=== PATIENT | female | born 1955 | race Caucasian/White ===

== ENCOUNTER 2019-07-13 09:01 | Outpatient (CLI) | payer OTHER, SELFPAY ==
--- NOTE | ~2019-07-13 | XR_ITS ---
EXAMINATION: CT abdomen pelvis wo con, XR abdomen/kub 1V DATE: 07/13/2019 09:31 INDICATION: Renal stone TECHNIQUE: 1. Computed tomography (CT) of the abdomen and pelvis was performed without intravenous contrast. Aut omated exposure control and iterative reconstruction technique were employed. The dose-length product was 212.50 mGy-cm. 2. Supine AP view of the abdomen and pelvis was obtained on 2 overlapping radiographs. COMPARISON: CT dated 06/04/2018 and MRI dated 04/16/16 FINDINGS: CT: Calcified left lower lobe nodule consistent with old granulomatous disease. Heart size is normal. No pericardial or pleural effusion. 1.2 cm cyst in the left hepatic lobe. Calcified gallstones in the de pendent neck of the normal gallbladder. Spleen, pancreas and bilateral adrenal glands are normal. [place] els including the appendix are normal. Bladder, retroverted uterus and bilateral adnexa are normal. 8 mm proteinaceous/hemorrhagic cyst at the upper pole of the right kidney. Postoperative change of catie or partial right nephrectomy with cortical scarring and surgical clip at the lower pole of the right kidney. 4 < 2 mm nonobstructing stones in the right kidney and 4 nonobstructing stones in the left ki dney the largest measuring 3 mm. No hydronephrosis. No stones seen along the ureters. No free intrape ritoneal gas or fluid. No pathologically enlarged abdominal or pelvic lymphadenopathy. KUB: The largest 3 mm stones can be seen at the upper and lower poles of the left kidney on the plain radi ograph. The proximal 3 mm density seen at the lateral right kidney on the plain radiograph represents either a surgical clip or dystrophic calcification related to the prior nephrectomy. Multiple phlebo liths in the pelvis. Multiple heterotopic ossicles at the bilateral buttocks likely related to subcut aneous injections. The calcified gallstones are readily visible in the right upper quadrant. IMPRESSION: 1. Small bilateral nonobstructing renal stones and stable appearing changes of prior right partial ne phrectomy. 2. Cholelithiasis. Reviewed, dictated and finalized at location A. HAUL OPERATOR IMPRESSION: 1. Small bilateral nonobstructing renal stones and stable appearing changes of prior right partial nephrectomy. 2. Cholelithiasis.
== END 2019-07-13 09:02 | disposition home or self-care (01) ==
PROVIDERS: PCP Family Medicine; Visit Provider Urology
DX: N20.0 Calculus of kidney (principal); K80.20 Calculus of gallbladder without cholecystitis without obstruction
CPT/HCPCS: 74018; 74176

== ENCOUNTER → 2019-07-16 11:41 | Outpatient (CLI) | payer OTHER, SELFPAY ==
--- NOTE | ~2019-07-16 | XR_ITS ---
EXAMINATION: XR chest 2V EXAM DATE: 07/16/2019 11:52 INDICATION: Cough. Renal mass. TECHNIQUE: Frontal and lateral projections of the chest obtained and reviewed. There is no prior nick dy for comparison. FINDINGS: The lungs are clear. There are no pleural effusions. The cardiomediastinal silhouette is within normal limits. There is no pneumothorax suspected. The bones and soft tissues are unremarkab le. IMPRESSION: No acute cardiopulmonary findings. Reviewed, dictated and finalized at location B. PRESS OPERATOR
== END ==
PROVIDERS: PCP Family Medicine; Visit Provider Urology
DX: N28.89 Other specified disorders of kidney and ureter (principal)
CPT/HCPCS: 71046

== ENCOUNTER 2020-09-25 08:55 | Outpatient (CLI) | payer OTHER, SELFPAY ==
--- NOTE | ~2020-09-25 | DEXA_ITS ---
Bone Density Report Name: Alison Carver Age: 64 Sex: Female Ethnicity: White Date of : 1955 Indication: monitoring treatment; parental hip fracture; height loss; history of glucocorticoids; prior fracture; cancer; Referring Provider: RAJIV PARKER Study: Bone densitometry was performed. Exam Date: September 25, 2020 Accession number: [id number] Bone Density: Region BMD T-score Z-score Classification AP Spine (L1, L4) 0.979 -0.5 1.1 Normal Femoral Neck (Left) 0.596 -2.3 -0.9 Osteopenia Total Hip (Left) 0.839 -0.8 0.3 Normal World Health Organization criteria for BMD impression classify patients as: Normal (T-score at or above -1.0), Osteopenia (T-score between -1.0 and -2.5), or Osteoporosis (T-score at or below -2.5). 10-year Fracture Risk: FRAX not reported because: Prior hip or vertebral fracture Treated for osteoporosis Previous Exams: Region Exam Age BMD T-score BMD Change BMD Change Date g/cm2 vs Baseline vs Previous AP Spine(L1, L4) 09/25/2020 64 0.979 -0.5 -0.058(-5.6%)* 0.019(2.0%) 09/08/2018 62 0.960 -0.7 -0.077(-7.4%)* 0.002(0.2%) 07/09/2016 60 0.958 -0.7 -0.079(-7.6%)* -0.079(-7.6%)* 06/28/2014 58 1.037 0.0 Total Hip(Left) 09/25/2020 64 0.839 -0.8 -0.075(-8.2%)* -0.109(-11.5%) 09/08/2018 62 0.948 0.0 0.034(3.7%)* 0.084(9.7%)* 07/09/2016 60 0.864 -0.6 -0.050(-5.4%)* -0.050(-5.4%)* 06/28/2014 58 0.914 -0.2 *Denotes significance at 95% confidence level, LSC for AP Spine = 0.022 g/cm2, LSC for Total Hip = 0.027 g/cm2 Clinical Information Provided by Patient: Have had a previous hip or vertebral fracture Has had a low trauma fracture Parent has had a hip fracture Has taken Glucocorticoids Is being treated for osteoporosis Has used the following medications: Fosamax (i.e. alendronate) Has the following medical conditions: Cancer Patient maximum height was 63 Menopause Age: 57 Drinks caffeinated beverages Onset of menses at age 14 Number of children 2 Impression: The patient has low bone mass, based on the Left Femoral Neck T-score. The patient has risk factors, including: parental hip fracture, previous fracture, history of glucocorticoid therapy. The BMD for the Total Hip(Left) decreased, changing by -11.5% since the last DXA exam. Discussion: SIGNIFICANT BONE LOSS OBSERVED. Adherence to therapy (including calcium and vitamin D intake) should be assessed. If compliance is not a factor, review management and exclusion of secondary causes of bone loss. It is im
== END 2020-09-25 08:56 | disposition home or self-care (01) ==
LOC: ANHIMG 08:57
PROVIDERS: PCP Family Medicine; Visit Provider Obstetrics & Gynecology
DX: M81.0 Age-related osteoporosis without current pathological fracture (principal); M85.88 Other specified disorders of bone density and structure, other site
CPT/HCPCS: 77080

== ENCOUNTER → 2020-10-16 15:03 | Outpatient (CLI) | payer OTHER, SELFPAY ==
--- NOTE | ~2020-10-16 | XR_ITS ---
XR chest 2V DATE: 10/16/2020 15:49 INDICATION: Left renal neoplasm TECHNIQUE: PA and lateral views COMPARISON: 07/16/2019 2 view chest FINDINGS: Normal heart size. No hilar or mediastinal enlargement. No pulmonary infiltrate or consolid ation, pleural effusion or pulmonary vascular congestion or pneumothorax. Degenerative spurring of the thoracic spine. There is mild loss of height and anterior wedging of doug roximately T8. Diffuse osteopenia. IMPRESSION: No active cardiopulmonary disease Reviewed, dictated and finalized at location A.
--- NOTE | ~2020-10-16 | CT_ITS ---
EXAMINATION: CT abdomen pelvis wo/w con DATE: 10/16/2020 15:48 INDICATION: Neoplasm of uncertain behavior of left kidney. History of cryoablation. History of renal cell cancer. TECHNIQUE: Computed tomography (CT) of the abdomen and pelvis was performed without and subsequently with 100 cc Omnipaque 350 intravenous contrast. Automated exposure control and iterative reconstructi on technique were employed. Exam dose: 1132.65 mGy-cm total exam DLP. COMPARISON: 07/23/[address] abdomen pelvis 06/04/2018 CT abdomen and pelvis with IV contrast material FINDINGS: Calcified left lower lobe pulmonary granuloma. The lung bases are clear of infiltrate or co nsolidation. Normal heart size. No pericardial or pleural effusion. 11 mm lateral segment left hepatic probable cyst. Multiple gallstones. No gallbladder wall thickening or pericholecystic fluid or fat stranding. Normal caliber of the bile ducts and pancreatic duct. No pancreatic mass lesion or calcification. Normal sp lenic size. Normal morphology of the adrenal glands. Status post partial right nephrectomy, stable in appearance since 06/04/2018. Several punctate nonobstructing right renal calculi are noted. Approximately 1.3 cm exophytic posterior upper pole right renal cyst. Probable 5 mm mid left renal cyst. 3.8 x 5.4 x 6.8 mm upper pole left renal calculus. Pinpoint nonobstructing upper pole left renal calculus. Several additional subtle punctate nonobstruc ting left renal calculi are suggested. 4.5 x 5.5 mm left ureterovesical junction calculus. The urinary bladder is otherwise unremarkable. Retroflexed uterus. Normal appendix. No bowel obstruction, bowel wall thickening, pneumatosis or intraperitoneal free air . Small fat-containing umbilical hernia. Hardware proximal right femur. No suspicious osteolytic or osteoblastic lesions are noted. Osteopenia. Degenerative spurring in the lower thoracic spine. There is chronic severe degenerative disc disease and grade 1 anterolisthesis at L2-3. There is grade 1 anterolisthesis at L4-5. IMPRESSION: Status post right partial nephrectomy Bilateral renal cysts Bilateral nephrolithiasis Left ureterovesical junction 4.5 x 5.5 mm calculus Left hepatic 11 mm cyst Cholelithiasis Reviewed, dictated and finalized at Location A. Reviewed, dictated and finalized at location A.
[2020-10-16 15:26] LABS: Estimated Glomerular Filt Rate > 60
== END ==
PROVIDERS: PCP Family Medicine; Visit Provider Urology
DX: D41.02 Neoplasm of uncertain behavior of left kidney (principal); K80.20 Calculus of gallbladder without cholecystitis without obstruction; K76.89 Other specified diseases of liver; N20.0 Calculus of kidney; N28.1 Cyst of kidney, acquired
CPT/HCPCS: 71046; 74178; Q9967

== ENCOUNTER 2020-10-30 14:16 | Outpatient (CLI) | payer OTHER, SELFPAY ==
[2020-10-30 14:45] LABS: Anion Gap 5 mmol/L (8-16); Blood Urea Nitrogen 10 mg/dL (7-17); Calcium 9.7 mg/dL (8.4-10.2); Carbon Dioxide 32 mmol/L (22-30); Chloride 102 mmol/L (98-107); Estimated Glomerular Filt Rate > 60; Glucose 110 mg/dL (65-105); Potassium 4.1 mmol/L (3.4-5.0); Sodium 139 mmol/L (137-145)
== END 2020-10-30 14:17 | disposition home or self-care (01) ==
LOC: ANHSURGERY 14:17
PROVIDERS: Anesthesiology; PCP Family Medicine; Visit Provider Urology
DX: Z01.818 Encounter for other preprocedural examination (principal); E11.9 Type 2 diabetes mellitus without complications
CPT/HCPCS: 36415; 80048

== ENCOUNTER → 2020-11-02 02:14 | Outpatient (CLI) | payer OTHER, SELFPAY ==
[2020-11-02 17:04] LABS: SARS-CoV-2 RNA PCR Negative
== END ==
PROVIDERS: PCP Family Medicine; Visit Provider Urology
DX: Z01.812 Encounter for preprocedural laboratory examination (principal); Z20.822 Contact with and (suspected) exposure to COVID-19
CPT/HCPCS: C9803; U0003; U0005

== ENCOUNTER 2020-11-05 01:13 | Day surgery (SDC) | payer OTHER, SELFPAY ==
[2020-10-26 14:43] VITALS: BMI 27.3
--- NOTE | 2020-10-27 07:41 | PM.HPGS ---
History of Present Illness History of Present Illness Consent: Risks, benefits, and alternatives have been discussed and questions answered. Patient agrees to proceed with procedure. Chief complaint: left ureteral stone Narrative: Alison Carver is a 65 year old female who is known to me with a history of neoplasm or left kidney status post percutaneous cryoablation in October 2015. She also has a history of urolithiasis. She recently presented with an atypical flank pain. CT scan of the abdomen and pelvis reveals a 5-6 mm left distal ureteral calculus. She has had little pain but, after failure to pass for several weeks, presents for left ureteroscopy with stone extraction. Review of Systems Cardiovascular: Cardiovascular: Denies chest pain, Denies lightheadedness, Denies palpitations and Denies dyspnea Respiratory: Respiratory: Denies dyspnea Gastrointestinal: Gastrointestinal: Denies diarrhea, Denies nausea and Denies vomiting Genitourinary: Genitourinary: Denies hematuria and Denies dysuria Endocrine: Endocrine: Denies palpitations PMFSH Past Medical History Medical History Glaucoma High cholesterol History of vaginal delivery x 2 Kidney tumor Psoriatic arthritis Recent surgical procedure on lower extremity Type 2 diabetes mellitus without complications Surgical History Surgical History H/O lithotripsy History of arthroscopy Family History Family History Father Hypertension Family history of diabetes mellitus in first degree relative Family history of irritable bowel syndrome Patient's father is Mother Hypertension Family history of elevated blood lipids, Onset Age: 76 Family history of irritable bowel syndrome Patient's mother is Grandparent Cerebrovascular accident Carcinoma of colon Other Diabetes mellitus Family history of arthritis Social History Social History Smoking status: Never smoker Second hand tobacco smoke exposure: No Alcohol intake: never Substance use: never Substance use type: does not use Gender identity (if verbalized by the patient): Female Spiritual care concerns: No Meds Home Medications and Allergies Home Medications Medication Instructions Recorded Confirmed Type cetirizine 10 mg tablet 10 mg PO DAILY 07/30/19 10/26/20 History diclofenac sodium 1 % topical gel 2 gm TOPICAL QID 07/30/19 10/26/20 History fluticasone propionate 50 2 spray NASAL DAILY 07/30/19 10/26/20 History mcg/actuation nasal spray,suspension lancets 33 gauge #100 each 07/30/19 08/27/20 History leflunomide 10 mg tablet 10 mg PO DAILY 07/30/19 10/26/20 History lisinopril 2.5 mg tablet 2.5 mg PO DAILY 07/30/19 10/26/20 History multivitamin 1 tablet PO DAILY 07/30/19 10/26/20 History metformin 500 mg tablet,extended 1,000 mg PO DAILY #180 tablet 05/22/20 10/26/20 Rx release 24 hr lancets #100 ea 08/05/20 08/27/20 Rx blood sugar diagnostic See Rx Instructions .ROUTE 10/05/20 10/26/20 Rx .COMPLEX #100 ea acetaminophen [Tylenol Arthritis 650 mg PO Q8H PRN 10/26/20 10/26/20 History Pain] atorvastatin 10 mg PO DAILY 10/26/20 10/26/20 History calcium carbonate-vitamin D3 1 cap PO DAILY 10/26/20 10/26/20 History [Calcium With Vitamin D3] cholecalciferol (vitamin D3) 125 mcg PO DAILY 10/26/20 10/26/20 History [Vitamin D3] sitagliptin [Januvia] 100 mg PO DAILY 10/26/20 10/26/20 History vit C-vit M-kdcnsz-jxebkunf 1 cap PO DAILY 10/26/20 10/26/20 History [Lutein Vison Formula] Allergies Allergy/AdvReac Type Severity Reaction Status Date / Time Penicillins Allergy Severe Rash Verified 10/26/20 14:37 fenofibrate Allergy Unknown Diarrhea Verified 10/26/20 14:37 niacin Allergy Unknown Diarrhea Verified
[2020-11-05] VITALS (8 sets, daily range): BP systolic 114–140; BP diastolic 72–82; PULSE 78–98; RESP 12–20; TEMP 36.5; O2SAT 95–100; BMI 28.5
--- NOTE | ~2020-11-05 | XR_ITS ---
EXAMINATION: XR fluoroscopy no charge EXAM DATE: 11/05/2020 11:18 INDICATION: Stone extraction. TECHNIQUE: Fluoroscopy used during procedure performed by Dr. Abdullahi Castillo MD. Radiologist was not present for the imaging or procedure. Total fluoroscopic time of 13 seconds. The DAP for t his procedure was 193 radcm2. A total of 3 images sent to PACS from the exam. FINDINGS: Several densities projecting over right upper quadrant, likely the gallstones seen on rece nt CT last month. Correlate with procedure note. IMPRESSION: Fluoroscopy used during procedure. Reviewed, dictated and finalized at location B.
--- NOTE | 2020-11-05 06:31 | WPDHPUPDATE1 ---
History and Physical Update Update Date/Time: 11/05/20 06:31 History and Physical has been reviewed, including an updated exam of the patient. There are NO changes in the patient's condition. Risks, benefits, and alternatives have been discussed and questions answered. Patient agrees to proceed with procedure.
--- NOTE | 2020-11-05 09:25 | SUR.PREOP ---
0925- mortgage loan coordinator called to assist with patient's POA documents. Per animal caretaker supervisor Radha, patient's copy of POA is complete and was reviewed with patient at bedside. This RN placed copy of POA paperwork into hard chart.
[2020-11-05] MEDS: LACTATED RINGERS 1,000 ML 30 ML IV CONT (09:30)
[2020-11-05 09:36] LABS: Glucose Point of Care 130 mg/dl (65-105)
--- NOTE | 2020-11-05 10:10 | SUR.PREOP ---
1010- Notified patient procedure time is delayed. Patient verbalized understanding.
--- NOTE | 2020-11-05 10:32 | WPDANESEPPF ---
Anes - Initial Pre Proc Eval Procedure: Operation Date: 11/05/20 10:15 Proposed Procedures p Cystoscopy, Left Ureteroscopy, Stone Extraction - Abdullahi Castillo MD Date/Time: 11/05/20 10:32 Surgeon: Abdullahi Castillo MD Pre Op Diagnosis: left ureteral stone Patient Data Age: 65 Gender: F Height: 5 ft 3 in Weight: 73.2 kg Last Vital Signs Temp 36.5 C 11/05/20 08:45 Pulse 98 11/05/20 08:45 Resp 16 11/05/20 08:45 BP 140/81 11/05/20 08:45 Pulse Ox 99 11/05/20 08:45 Allergies Allergy/AdvReac Type Severity Reaction Status Date / Time Penicillins Allergy Severe Rash Verified 11/05/20 08:43 niacin Allergy Intermediate Diarrhea Verified 11/05/20 08:43 simvastatin Allergy Intermediate Diarrhea Verified 11/05/20 08:43 fenofibrate Allergy Mild Diarrhea Verified 11/05/20 08:43 Home Medications Medication Instructions Recorded Confirmed Type cetirizine 10 mg tablet 10 mg PO DAILY 07/30/19 10/26/20 History diclofenac sodium 1 % topical gel 2 gm TOPICAL QID 07/30/19 11/05/20 History fluticasone propionate 50 2 spray NASAL DAILY 07/30/19 10/26/20 History mcg/actuation nasal spray,suspension lancets 33 gauge #100 each 07/30/19 08/27/20 History leflunomide 10 mg tablet 10 mg PO DAILY 07/30/19 11/05/20 History lisinopril 2.5 mg tablet 2.5 mg PO DAILY 07/30/19 10/26/20 History multivitamin 1 tablet PO DAILY 07/30/19 11/05/20 History metformin 500 mg tablet,extended 1,000 mg PO DAILY #180 tablet 05/22/20 10/26/20 Rx release 24 hr lancets #100 ea 08/05/20 08/27/20 Rx blood sugar diagnostic See Rx Instructions .ROUTE 10/05/20 10/26/20 Rx .COMPLEX #100 ea acetaminophen [Tylenol Arthritis 650 mg PO Q8H PRN 10/26/20 11/05/20 History Pain] atorvastatin 10 mg PO DAILY 10/26/20 10/26/20 History calcium carbonate-vitamin D3 1 cap PO DAILY 10/26/20 11/05/20 History [Calcium With Vitamin D3] cholecalciferol (vitamin D3) 125 mcg PO DAILY 10/26/20 11/05/20 History [Vitamin D3] vit C-vit Q-cnuseg-hnorqjfj 1 cap PO DAILY 10/26/20 11/05/20 History [Lutein Vison Formula] sitagliptin 100 mg tablet 100 mg PO DAILY #30 tablet 11/03/20 Rx Laboratory Tests 11/05/20 09:31 POC Capillary Glucose 130 mg/dl H mg/dl (65-105) Patient hx anesthesia problems: post op nausea/vomiting Family hx anesthesia problems: post op nausea/vomiting PMFSH Past Medical History Medical History Essential (primary) hypertension Glaucoma High cholesterol History of vaginal delivery x 2 Kidney tumor Psoriatic arthritis Recent surgical procedure on lower extremity Type 2 diabetes mellitus without complications Surgical History Surgical History H/O lithotripsy History of arthroscopy Family History Family History Father Hypertension Family history of diabetes mellitus in first degree relative Family history of irritable bowel syndrome Patient's father is Mother Hypertension Family history of elevated blood lipids, Onset Age: 76 Family history of irritable bowel syndrome Patient's mother is Grandparent Cerebrovascular accident Carcinoma of colon Other Diabetes mellitus Family history of arthritis Social History Social History Smoking status: Never smoker Second hand tobacco smoke exposure: No Alcohol intake: current Substance use: never Substance use type: does not use Living arrangements: alone Gender identity (if verbalized by the patient): Female Spiritual care concerns: No Anes - Eval Final PreProcedure Day of Procedure 11/05/20 10:32 Patient weight: overweight Heart: regular rate and rhythm Lungs: clear to auscultation Airway: Mallampati scale class II Neurological: alert and oriented
[2020-11-05] MEDS: SCOPOLAMINE 1.5 MG PATCH TRANSDERM (10:36)
[2020-11-05] MEDS: ceFAZolin 2 GM/D5W 50 ML 2 GM/50 ML BAG IVPB (10:45)
[2020-11-05] MEDS: LIDOCAINE HCL 2% GEL UROJET 10 ML PKG MUCOUS MEM (11:07)
--- NOTE | 2020-11-05 11:14 | PM.PROC ---
Procedure Note - Detailed Date of procedure: 11/05/20 Pre-op diagnosis: left ureteral stone Post-op diagnosis: same Procedure performed: Cystoscopy, left ureteroscopy Description of procedure: which brought the optional she is prepped and draped in routine sterile fashion while in a dorsal lithotomy position. After the uneventful induction of a general anesthetic cystoscopy is undertaken with a 19 F rigid cystoscope. Bladder was endoscopically normal, without foreign body or neoplasm PI she has a single orthotopic ureteral orifice bilaterally. A 0.035 in glidewire was advanced in the left renal pelvis and the distal ureter was dilated with an 8 F 10 F dilator. Ureteroscopy was undertaken with a short tapered semi-rigid ureteral scope. There are no current ureteral calculi. Ureteroscopy was undertaken to the proximal ureter. Scopes and wires were removed. I opted not to place a stent. She was taken recovery in good condition Anesthesia: GLMA Surgeon: Abdullahi Castillo MD Program Director/Air Personality: None Estimated blood loss (mL): 0 Drains: No Packing: No Pathology: none sent Complications: No immediate complications Condition: stable Disposition: PACU
[2020-11-05 11:28] LABS: Glucose Point of Care 127 mg/dl (65-105)
--- NOTE | 2020-11-05 11:51 | SUR.PHASEI ---
O2 removed at 1144.
== END 2020-11-05 12:57 | disposition home or self-care (01) ==
PROVIDERS: PCP Family Medicine; Visit Provider Urology
PROC: (CPT 52352; principal; 2020-11-05 10:15)
DX: N20.1 Calculus of ureter (principal); I10 Essential (primary) hypertension; E11.9 Type 2 diabetes mellitus without complications; E78.00 Pure hypercholesterolemia, unspecified; H40.9 Unspecified glaucoma; L40.50 Arthropathic psoriasis, unspecified; Z79.84 Long term (current) use of oral hypoglycemic drugs
CPT/HCPCS: 52351; 82948; A9270; C1769; J0690; J1100; J2370; J2405; J2704; J3010; J7120

== ENCOUNTER → 2021-06-01 12:23 | Outpatient (CLI) | payer OTHER, SELFPAY ==
--- NOTE | ~2021-06-01 | XR_ITS ---
EXAMINATION: XR abdomen/kub 1V INDICATION: Renal mass TECHNIQUE: Supine views of the abdomen were obtained on 2 radiographs. COMPARISON: CT, 10/16/2020 FINDINGS: There are stones measuring up to 10 mm on the right mid kidney. No definite left urolithias is is identified. No stones are identified along the expected courses of the ureters or within the ur inary bladder. There are phleboliths of the pelvis. Internal stabilization hardware is noted in the r ight proximal femur. There is moderate lumbar spondylosis. IMPRESSION: 1. Right nephrolithiasis. Reviewed, dictated and finalized at location F. WARE ENGINEER IMPRESSION: 1. Right nephrolithiasis.
== END ==
PROVIDERS: PCP Family Medicine; Visit Provider Urology
DX: N20.0 Calculus of kidney (principal)
CPT/HCPCS: 74018

== ENCOUNTER → 2021-06-29 07:55 | Outpatient (CLI) | payer OTHER, SELFPAY ==
--- NOTE | ~2021-06-29 | CT_ITS ---
EXAMINATION: CT abdomen pelvis wo con DATE: 06/29/2021 08:23 INDICATION: Left hydronephrosis TECHNIQUE: Computed tomography (CT) of the abdomen and pelvis was performed without intravenous contr ast. The dose-length product was 595.87 mGy-cm. Automated exposure control and iterative reconstructi on technique were employed. COMPARISON: CT dated 10/16/2020. FINDINGS: Heart size is normal. No significant pleural or pericardial effusion. Mild atherosclerosis without aneurysm. Nonobstructive bowel gas pattern. No lymphadenopathy. There are gallstones. The spleen, pancreas, adrenal glands are unremarkable. There are nonobstructing bilateral renal stones. There are low-density lesions in the liver and right kidney, most likely jason ign cysts. There is a 5.6 mm stone in the distal left ureter with mild hydronephrosis. There are surg ical changes in the right femur proximally. There is degenerative disc narrowing and endplate degener ative change at L2-3. There is degenerative anterolisthesis at L2-3 and L4-5. IMPRESSION: 1. Distal left ureteral stone measuring 5.6 mm with mild hydronephrosis. 2: Nonobstructing bilateral nephrolithiasis. 3: Cholelithiasis. Reviewed, dictated and finalized at location B. HIC ARTIST
== END ==
PROVIDERS: PCP Family Medicine; Visit Provider Urology
DX: N13.30 Unspecified hydronephrosis (principal); K80.20 Calculus of gallbladder without cholecystitis without obstruction; N20.2 Calculus of kidney with calculus of ureter
CPT/HCPCS: 74176

== ENCOUNTER 2021-07-14 12:30 | Outpatient (CLI) | payer OTHER, SELFPAY ==
--- NOTE | ~2021-07-14 | US_ITS ---
EXAMINATION: US renal BI EXAM DATE: 07/14/2021 12:59 INDICATION: Left hydronephrosis. TECHNIQUE: Multiple grayscale and Doppler images of the kidneys were obtained (by a technologist who performed the scan) and subsequently reviewed. Comparison is made to prior examination from 5. Correlation was made with CT 06/29/2021. FINDINGS: Right kidney: There is normal contour and echogenicity. It measures 9.6 x 4.9 x 5.2 centimeters. Th ere are no focal renal lesions identified. There is no hydronephrosis. Left kidney: There is normal contour and echogenicity. It measures 11.3 x 5.5 x 5.1 centimeters. Th ere is mild left hydronephrosis. There is left nephrolithiasis measuring 5 mm. Bladder unremarkable. Both ureteral jets are confirmed. IMPRESSION: Left inferior calyceal stone measuring about 5 mm (approximately the size of the ureteral stone seen on prior CT last month), mild hydronephrosis. Both ureteral jets were confirmed in the bl adder. Reviewed, dictated and finalized at location B. FIC REPORTER IMPRESSION: Left inferior calyceal stone measuring about 5 mm (approximately th e size of the ureteral stone seen on prior CT last month), mild hydronephrosis. Both ureteral jets were confirmed in the bladder.
== END 2021-07-14 12:31 | disposition home or self-care (01) ==
PROVIDERS: PCP Family Medicine; Visit Provider Urology
DX: N13.30 Unspecified hydronephrosis (principal)
CPT/HCPCS: 76775

== ENCOUNTER → 2021-12-31 09:53 | Outpatient (CLI) | payer OTHER, SELFPAY ==
--- NOTE | ~2021-12-31 | XR_ITS ---
XR abdomen/kub 1V 12/31/2021 10:11 INDICATION: Renal stone TECHNIQUE: KUB COMPARISON: None FINDINGS: Bowel gas pattern is normal. There is no evidence of free air, mass, organomegaly, ascites or obstruction. There is a small stone overlying the lower pole of the right kidney. There are galls tones overlying the right kidney as well. The bones appear intact. Moderate lumbar spondylosis with l evoscoliosis. IMPRESSION: 1: Right nephrolithiasis at the lower pole. 2: Cholelithiasis. Reviewed, dictated and finalized at location A.
== END ==
PROVIDERS: PCP Family Medicine; Visit Provider Urology
DX: N20.0 Calculus of kidney (principal); K80.20 Calculus of gallbladder without cholecystitis without obstruction
CPT/HCPCS: 74018

== ENCOUNTER 2022-07-01 02:54 | Day surgery (SDC) | payer OTHER, SELFPAY ==
[2022-06-16 14:08] VITALS: BMI 29.8
[2022-07-01 08:17] VITALS: BP 140/86; PULSE 113; RESP 18; TEMP 36.6; O2SAT 100; BMI 29.5
--- NOTE | 2022-07-01 08:19 | WPDANESEPPF ---
Anes - Initial Pre Proc Eval Procedure: Operation Date: 07/01/22 09:00 Proposed Procedures p Colonoscopy - Edmar Dong MD Date/Time: 07/01/22 08:19 Surgeon: Edmar Dong MD Pre Op Diagnosis: neoplasm screening Patient Data Age: 66 Gender: F Height: 1.57 m Weight: 74 kg Allergies Allergy/AdvReac Type Severity Reaction Status Date / Time Penicillins Allergy Severe Rash Verified 07/01/22 08:15 niacin Allergy Intermediate Diarrhea Verified 07/01/22 08:15 simvastatin Allergy Intermediate Diarrhea Verified 07/01/22 08:15 fenofibrate Allergy Mild Diarrhea Verified 07/01/22 08:15 Home Medications Medication Instructions Recorded Confirmed Type cetirizine 10 mg tablet (Wal-Zyr 10 mg PO DAILY PRN Allergy Symptoms 07/30/19 06/16/22 History (cetirizine)) diclofenac sodium 1 % topical gel 2 gm topical QID 07/30/19 06/16/22 History lancets 33 gauge (OneTouch Delica #100 ea 07/30/19 07/01/22 History Lancets) leflunomide 10 mg tablet 10 mg PO DAILY 07/30/19 06/16/22 History multivitamin 1 tablet PO DAILY 07/30/19 06/16/22 History acetaminophen 650 mg 650 mg PO Q8H PRN Pain 10/26/20 06/16/22 History tablet,extended release (Tylenol Arthritis Pain) cholecalciferol (vitamin D3) 125 125 mcg PO DAILY 10/26/20 06/16/22 History mcg (5,000 unit) tablet (Vitamin D3) blood sugar diagnostic (Accu-Chek See Rx Instructions .Route 12/17/20 07/01/22 Rx Guide test strips) .COMPLEX #100 ea lisinopril 2.5 mg tablet 5 mg PO DAILY 04/12/21 06/16/22 History lancets (Accu-Chek Fastclix Lancet See Rx Instructions .Route 08/06/21 07/01/22 Rx Drum) .COMPLEX #102 ea icosapent ethyl 1 gram capsule 2 g PO BID #1 cap 12/29/21 06/16/22 Rx (Vascepa) atorvastatin 10 mg tablet 10 mg PO DAILY #90 tabs 05/05/22 06/16/22 Rx metformin 500 mg tablet,extended See Rx Instructions .Route 12/01/22 01/12/23 Rx release 24 hr .COMPLEX #180 tabs sitagliptin phosphate 100 mg 100 mg PO DAILY #90 tabs 05/05/22 06/16/22 Rx tablet (Januvia) Patient hx anesthesia problems: none Family hx anesthesia problems: none Results Review: All pre-operative results and documents have been reviewed as part of the pre-operative evaluation. [facility] Past Medical History Medical History Essential (primary) hypertension Glaucoma High cholesterol History of vaginal delivery x 2 Kidney tumor Psoriatic arthritis Recent surgical procedure on lower extremity Type 2 diabetes mellitus without complications Surgical History Surgical History H/O lithotripsy History of arthroscopy Status post cryoablation Family History Family History Father Hypertension Family history of diabetes mellitus in first degree relative Family history of irritable bowel syndrome Patient's father is Mother Hypertension Family history of elevated blood lipids, Onset Age: 76 Family history of irritable bowel syndrome Patient's mother is Grandparent Cerebrovascular accident Carcinoma of colon Other Diabetes mellitus Family history of arthritis Social History Social History Smoking status: Never smoker Second hand tobacco smoke exposure: No Alcohol intake: never Alcohol use details: seldom-socially Substance use: never Substance use type: does not use Living arrangements: with family Occupation/Education: retired Gender identity (if verbalized by the patient): Female Sexual Orientation (if Verbalized by the Patient): Straight or Heterosexual Spiritual care concerns: No Anes - Eval Final PreProcedure Day of Procedure 07/01/22 08:19 Patient weight: obese Heart: regular rate and rhythm Lungs: clear to auscultation Airway: Mallampati scale class II Neurological: alert an
[2022-07-01] MEDS: LACTATED RINGERS 1,000 ML 150 ML IV CONT (08:35)
[2022-07-01 08:39] LABS: Glucose Point of Care 204 mg/dl (65-105)
--- NOTE | 2022-07-01 08:48 | PM.HPGS ---
History of Present Illness History of Present Illness Consent: Risks, benefits, and alternatives have been discussed and questions answered. Patient agrees to proceed with procedure. Chief complaint: neoplasm screening Narrative: Alison Carver is a 66 year old female Presents for screening colonoscopy. Patient's current weight appetite and bowel movements are normal. Patient denies abdominal pain. She has had no bleeding. Family history is noncontributory. Previous colonoscopy 10 years ago was unremarkable. Patient presents today for neoplasia screening colonoscopy. Review of Systems Review of Systems: Review of systems noncontributory. [facility] Past Medical History Medical History Essential (primary) hypertension Glaucoma High cholesterol History of vaginal delivery x 2 Kidney tumor Psoriatic arthritis Recent surgical procedure on lower extremity Type 2 diabetes mellitus without complications Surgical History Surgical History H/O lithotripsy History of arthroscopy Status post cryoablation Family History Family History Father Hypertension Family history of diabetes mellitus in first degree relative Family history of irritable bowel syndrome Patient's father is Mother Hypertension Family history of elevated blood lipids, Onset Age: 76 Family history of irritable bowel syndrome Patient's mother is Grandparent Cerebrovascular accident Carcinoma of colon Other Diabetes mellitus Family history of arthritis Social History Social History Smoking status: Never smoker Second hand tobacco smoke exposure: No Alcohol intake: never Alcohol use details: seldom-socially Substance use: never Substance use type: does not use Living arrangements: with family Occupation/Education: retired Gender identity (if verbalized by the patient): Female Sexual Orientation (if Verbalized by the Patient): Straight or Heterosexual Spiritual care concerns: No Meds Home Medications and Allergies Home Medications Medication Instructions Recorded Confirmed Type cetirizine 10 mg tablet (Wal-Zyr 10 mg PO DAILY PRN Allergy Symptoms 07/30/19 06/16/22 History (cetirizine)) diclofenac sodium 1 % topical gel 2 gm topical QID 07/30/19 06/16/22 History lancets 33 gauge (OneTouch Deljuide #100 ea 07/30/19 07/01/22 History Lancets) leflunomide 10 mg tablet 10 mg PO DAILY 07/30/19 06/16/22 History multivitamin 1 tablet PO DAILY 07/30/19 06/16/22 History acetaminophen 650 mg 650 mg PO Q8H PRN Pain 10/26/20 06/16/22 History tablet,extended release (Tylenol Arthritis Pain) cholecalciferol (vitamin D3) 125 125 mcg PO DAILY 10/26/20 06/16/22 History mcg (5,000 unit) tablet (Vitamin D3) blood sugar diagnostic (Accu-Chek See Rx Instructions .Route 12/17/20 07/01/22 Rx Guide test strips) .COMPLEX #100 ea lisinopril 2.5 mg tablet 5 mg PO DAILY 04/12/21 06/16/22 History lancets (Accu-Chek Fastclix Lancet See Rx Instructions .Route 08/06/21 07/01/22 Rx Drum) .COMPLEX #102 ea icosapent ethyl 1 gram capsule 2 g PO BID #1 cap 12/29/21 06/16/22 Rx (Vascepa) atorvastatin 10 mg tablet 10 mg PO DAILY #90 tabs 05/05/22 06/16/22 Rx metformin 500 mg tablet,extended See Rx Instructions .Route 05/05/22 06/16/22 Rx release 24 hr .COMPLEX #180 tabs sitagliptin phosphate 100 mg 100 mg PO DAILY #90 tabs 05/05/22 06/16/22 Rx tablet (Januvia) Allergies Allergy/AdvReac Type Severity Reaction Status Date / Time Penicillins Allergy Severe Rash Verified 07/01/22 08:15 niacin Allergy Intermediate Diarrhea Verified 07/01/22 08:15 simvastatin Allergy Intermediate Diarrhea Verified 07/01/22 08:15 fenofibrate Allergy Mild Diarrhea Verified 07/01/22 08:15
[2022-07-01] MEDS: SIMETHICONE ORAL SUSPENSION 20 MG/0.3 ML 30 ML BOTTLE 0.6 ML IRRIGATION (09:07)
[2022-07-01 09:17] VITALS: BP 112/69; PULSE 98; RESP 21; O2SAT 98
[2022-07-01 09:27] VITALS: BP 128/87; PULSE 97; RESP 18; O2SAT 98
[2022-07-01 09:37] VITALS: BP 142/94; PULSE 95; RESP 22; O2SAT 100
== END 2022-07-01 09:40 | disposition home or self-care (01) ==
PROVIDERS: PCP Family Medicine; Visit Provider Internal Medicine Gastroenterology
PROC: 0DJD8ZZ Inspection of Lower Intestinal Tract, Via Natural or Artificial Opening Endoscopic (ICD-10-PCS; CPT 45378; principal; 2022-07-01 09:00)
DX: Z12.11 Encounter for screening for malignant neoplasm of colon (principal); I10 Essential (primary) hypertension; H40.9 Unspecified glaucoma; E78.00 Pure hypercholesterolemia, unspecified; L40.50 Arthropathic psoriasis, unspecified; E11.9 Type 2 diabetes mellitus without complications; Z68.29 Body mass index [BMI] 29.0-29.9, adult; E66.9 Obesity, unspecified; Z79.1 Long term (current) use of non-steroidal anti-inflammatories (NSAID); Z79.84 Long term (current) use of oral hypoglycemic drugs; Z79.899 Other long term (current) drug therapy; Z82.49 Family history of ischemic heart disease and other diseases of the circulatory system; Z83.3 Family history of diabetes mellitus
CPT/HCPCS: 45378; 82948; J2704; J7120

== ENCOUNTER → 2022-07-11 08:17 | Outpatient (CLI) | payer OTHER, SELFPAY ==
--- NOTE | ~2022-07-11 | CT_ITS ---
Non-contrast CT scan of the Abdomen and Pelvis Clinical indication: Renal mass Technique: 5 mm axial scans were obtained through the abdomen and pelvis without intravenous or oral contrast. Dose reduction technique was used on this scan by utilizing automated exposure control and iterative reconstruction technique. The dose-length product (DLP) was 673.93 mGy-cm. COMPARISON: 06/29/2021 Findings: Images through the lung bases reveal no abnormalities. No evidence of suspicious renal mass. Focal cortical scarring and calcification the right midpole com patible with prior cryoablation change. Small right upper pole renal cyst is unchanged. Punctate nono bstructing left renal stone present. No hydronephrosis. The liver, spleen, pancreas, and adrenals appear normal. Calcified gallstones are present. There is n o aortic aneurysm. There is no evidence of bowel obstruction. Images through the pelvis were performed. There is no evidence of ascites or lymphadenopathy. Urinary bladder unremarkable. No adnexal mass evident. Impression: No evidence of malignancy or metastatic disease. Stable postprocedural change of the right kidney rel ated to prior cryoablation. Punctate nonobstructing left renal stone. Cholelithiasis. Reviewed, dictated and finalized at location . [facility] SAFETY AND PROTECTION Impression: No evidence of malignancy or metastatic disease. Stable postprocedural change o f the right kidney related to prior cryoablation. Punctate nonobstructing left renal stone. Cholelithiasis.
--- NOTE | ~2022-07-11 | XR_ITS ---
Clinical Indication: Renal mass PA and lateral views of the chest: Comparison: 10/16/2020 Findings: The lungs are clear, without evidence of focal consolidation or pleural effusion. Cardiome diastinal silhouette is within normal limits. Bones and soft tissues are unremarkable. Impression: Normal chest. Reviewed, dictated and finalized at [facility]. OLOGIC AIDE Impression: Normal chest.
--- NOTE | ~2022-07-11 | XR_ITS ---
Supine and upright views of the abdomen Clinical history: Renal mass Findings: Bowel gas pattern is nonspecific. No evidence for obstruction or free air. Calcified gallst ones are present. Possible tiny calcified right renal stone.. Degenerative change in the lumbar spine noted. Impression: Cholelithiasis. Reviewed, dictated and finalized at [facility]. ING OPERATOR HELPER Impression: Cholelithiasis.
== END ==
PROVIDERS: PCP Family Medicine; Visit Provider Urology
DX: N28.89 Other specified disorders of kidney and ureter (principal); K80.20 Calculus of gallbladder without cholecystitis without obstruction; N20.0 Calculus of kidney
CPT/HCPCS: 71046; 74018; 74176

== ENCOUNTER → 2022-12-03 08:10 | Outpatient (CLI) | payer OTHER, SELFPAY ==
--- NOTE | ~2022-12-03 | US_ITS ---
Limited Abdominal Sonogram: Real-time sonographic imaging of the right upper quadrant was performed. Clinical History: Psoriatic arthritis Findings: The liver appears echogenic, with no evidence of solid mass lesion or bile duct dilatation . 1.2 cm left hepatic lobe cyst present. Main portal vein demonstrates normal direction of flow. The gallbladder is well distended, and contains echogenic, shadowing gallstones. No gallbladder wall thic kening. The common bile duct measures 6 mm. The visualized pancreas, aorta, and IVC are unremarkable . Impression: Cholelithiasis. Diffuse fatty infiltration of liver. Small left hepatic lobe cysts, as detailed above. Reviewed, dictated and finalized at location M. Impression: Cholelithiasis. Diffuse fatty infiltration of liver. Small left hepatic lobe cysts, as detailed above.
== END ==
PROVIDERS: PCP Family Medicine; Visit Provider Internal Medicine Rheumatology
DX: L40.50 Arthropathic psoriasis, unspecified (principal); R94.5 Abnormal results of liver function studies; Z79.899 Other long term (current) drug therapy; K80.20 Calculus of gallbladder without cholecystitis without obstruction; K76.0 Fatty (change of) liver, not elsewhere classified
CPT/HCPCS: 76705

== ENCOUNTER 2023-01-04 14:45 | Outpatient (CLI) | payer OTHER, SELFPAY ==
--- NOTE | ~2023-01-04 | DEXA_ITS ---
Bone Density Report Name: ARTURO BURLESON Age: 67 Sex: Female Ethnicity: White Date of : 1955 Indication: postmenopausal; screening for osteoporosis; parental hip fracture; height loss; prior fracture; cancer; Referring Provider: RAJIV PARKER Study: Bone densitometry was performed. Exam Date: January 04, 2023 Accession number: [id number] Bone Density: Region BMD T-score Z-score Classification AP Spine(L1, L4) 0.964 -0.7 1.1 Normal Femoral Neck (Left) 0.636 -1.9 -0.4 Osteopenia Total Hip (Left) 0.818 -1.0 0.2 Normal World Health Organization criteria for BMD impression classify patients as: Normal (T-score at or above -1.0), Osteopenia (T-score between -1.0 and -2.5), or Osteoporosis (T-score at or below -2.5). 10-year Fracture Risk: FRAX not reported because: Prior hip or vertebral fracture Previous Exams: Region Exam Age BMD T-score BMD Change BMD Change Date g/cm2 vs Baseline vs Previous AP Spine (L1,L4) 01/04/2023 67 0.964 -0.7 -0.073 (-7.1%) -0.015 (-1.6%) 09/25/2020 64 0.979 -0.5 -0.058 (-5.6%) 0.019 (2.0%) 09/08/2018 62 0.960 -0.7 -0.077 (-7.4%) 0.002 (0.2%) 07/09/2016 60 0.958 -0.7 -0.079 (-7.6%) -0.079 (-7.6%) 06/28/2014 58 1.037 0.0 Total Hip(Left) 01/04/2023 67 0.818 -1.0 -0.096 (-10.5% -0.021 (-2.5%) 09/25/2020 64 0.839 -0.8 -0.075 (-8.2%) -0.109 (-11.5% 09/08/2018 62 0.948 0.0 0.034 (3.7%)* 0.084 (9.7%)* 07/09/2016 60 0.864 -0.6 -0.050 (-5.4%) -0.050 (-5.4%) 06/28/2014 58 0.914 -0.2 *Denotes significance at 95% confidence level, LSC for AP Spine = 0.022 g/cm2, LSC for Total Hip = 0.027 g/cm2 Clinical Information Provided by Patient: Have had a previous hip or vertebral fracture Has had a low trauma fracture Parent has had a hip fracture Has used the following medications: Fosamax (i.e. alendronate), Vitamin D Has the following medical conditions: Cancer Patient maximum height was 64 Menopause Age: 57 Drinks caffeinated beverages Onset of menses at age 14 Number of children 2 Impression: The patient has low bone mass, based on the Left Femoral Neck T-score. The patient has risk factors, including: parental hip fracture, previous fracture. No significant bone loss was observed. Discussion: INCREASED RISK OF FRACTURE DUE TO HISTORY OF FRACTURE. The patient's previous fracture puts the patient at high risk of a future fracture. In untreated patients, the risk of osteoporotic fracture increases approximately two-fold for each
== END 2023-01-04 14:46 | disposition home or self-care (01) ==
LOC: ANHIMG 14:48
PROVIDERS: PCP Family Medicine; Visit Provider Obstetrics & Gynecology
DX: Z78.0 Asymptomatic menopausal state (principal); M85.852 Other specified disorders of bone density and structure, left thigh
CPT/HCPCS: 77080

== ENCOUNTER → 2023-06-30 15:05 | Outpatient (CLI) | payer OTHER, SELFPAY ==
--- NOTE | ~2023-06-30 | XR_ITS ---
EXAMINATION: XR chest 2V 06/30/2023 15:32 INDICATION: Renal stone PROCEDURE: 2 view chest COMPARISON: 07/11/2022 FINDINGS: The lungs are clear. The cardiomediastinal silhouette is within normal limits. There are no pleural effusions. There is no pneumothorax suspected. IMPRESSION: 1: NO ACUTE CARDIOPULMONARY DISEASE. Reviewed, dictated and finalized at location B. OSURGEON
--- NOTE | ~2023-06-30 | CT_ITS ---
EXAMINATION: CT abdomen pelvis wo con DATE: 06/30/2023 15:32 INDICATION: Renal stones. TECHNIQUE: Computed tomography (CT) of the abdomen and pelvis was performed without intravenous contr ast. The dose-length product was 384.35 mGy-cm. Automated exposure control and iterative reconstructi on technique were employed. COMPARISON: CT dated 07/11/2022. FINDINGS: Lung bases unremarkable. Heart size normal. No significant pleural or pericardial effusion. There are gallstones. Fatty infiltration of the liver. The spleen, pancreas, adrenal glands and left kidney are unremarkable. Punctate nonobstructing right nephrolithiasis. There is irregular contour t o the posterior margin of the right kidney which may relate to prior cryoablation surgery, although f urther evaluation with renal ultrasound recommended to exclude mass. There are nonobstructing right r enal stones nonobstructive bowel gas pattern. No free air or free fluid. No acute osseous abnormality . Severe lumbar spondylosis with grade 1 degenerative spondylolisthesis at L2-3, L3-4 and L4-5. IMPRESSION: 1. Contour irregularity to the right kidney posteriorly, most likely postsurgical although underlying mass not excluded. Correlation with ultrasound recommended. 2: Nonobstructing bilateral nephrolithiasis. 3: Fatty infiltration of the liver. 4: Cholelithiasis. Reviewed, dictated and finalized at location A. EMENTATION ANALYST IMPRESSION: 1. Contour irregularity to the right kidney posteriorly, most likely postsurgic al although underlying mass not excluded. Correlation with ultrasound recommend ed. 2: Nonobstructing bilateral nephrolithiasis. 3: Fatty infiltration of the liver. 4: Cholelithiasis.
== END ==
PROVIDERS: PCP Urology; Visit Provider Urology
DX: N20.0 Calculus of kidney (principal); K76.0 Fatty (change of) liver, not elsewhere classified; K80.20 Calculus of gallbladder without cholecystitis without obstruction
CPT/HCPCS: 71046; 74176

== ENCOUNTER 2024-07-22 12:59 | Outpatient (CLI) | payer MEDICARE, SELFPAY ==
--- NOTE | ~2024-07-22 | XR_ITS ---
Clinical Indication: Neoplasm of left kidney PA and lateral views of the chest: Comparison: 06/30/2023 Findings: The lungs are clear, without evidence of focal consolidation or pleural effusion. Cardiome diastinal silhouette is within normal limits. Bones and soft tissues are unremarkable. Impression: Normal chest. Reviewed, dictated and finalized at [facility]. MANAGEMENT DIRECTOR Impression: Normal chest.
--- NOTE | ~2024-07-22 | CT_ITS ---
EXAMINATION: CT abdomen pelvis wo/w con DATE: 07/22/2024 13:35 INDICATION: Right renal cryoablation for neoplasm of uncertain behavior TECHNIQUE: Computed tomography (CT) of the abdomen and pelvis was performed without and with 100 mL O [id number] intravenous contrast. Automated exposure control and iterative reconstruction technique were employed. The dose-length product was 806.12 mGy-cm. COMPARISON: 06/30/2023 FINDINGS: Calcified left lower lobe nodule consistent with old granulomatous disease. Heart size normal. No per icardial or pleural effusion. Diffuse hepatic steatosis. 1.1 cm cyst in the left hepatic lobe. A few calcified gallstones at the neck of the normal appearing none dilated gallbladder. Spleen, pancreas b ilateral adrenal glands are normal. Small region of cortical scarring at the lateral lower pole of th e right kidney. Bilateral nonobstructing nephrolithiasis with 3 mm stone near the region of cortical scarring at the right kidney and a few additional punctate <1 mm calcifications scattered throughout the right kidney and one in the left kidney. No hydronephrosis. Bilateral renal cysts the larger exop hytic 2.4 cm cyst at the upper pole the right kidney. Bowels including the appendix are normal. Bladd er, uterus and bilateral adnexa are unremarkable. No free intraperitoneal gas or fluid. No pathologic ally enlarged abdominal or pelvic lymphadenopathy. Severe lumbar and lower thoracic spondylosis. Part ially visualized lateral plate and screw fixation along the visualized proximal right femoral diaphys is. IMPRESSION: 1. Focal cortical scarring at the lateral lower pole the right kidney presumably at the site of the r eported cryoablation. No evident residual, recurrent or metastatic disease. 2. Bilateral nonobstructing nephrolithiasis. 3. Diffuse hepatic steatosis. 4. Cholelithiasis. Reviewed, dictated and finalized at location A. OF MOBILE IMPRESSION: 1. Focal cortical scarring at the lateral lower pole the right kidney presumabl y at the site of the reported cryoablation. No evident residual, recurrent or m etastatic disease. 2. Bilateral nonobstructing nephrolithiasis. 3. Diffuse hepatic steatosis. 4. Cholelithiasis.
[2024-07-22 13:22] LABS: Estimated Glomerular Filt Rate 55
== END 2024-07-22 13:00 | disposition home or self-care (01) ==
PROVIDERS: PCP Family Medicine; Visit Provider Urology
DX: K80.20 Calculus of gallbladder without cholecystitis without obstruction (principal); N20.0 Calculus of kidney; K76.0 Fatty (change of) liver, not elsewhere classified
CPT/HCPCS: 71046; 74178; Q9967

== ENCOUNTER 2025-02-11 07:02 | Outpatient (CLI) | payer MEDICARE, SELFPAY ==
--- NOTE | ~2025-02-11 | XR_ITS ---
EXAMINATION: XR knee LT 3V, 02/11/2025 7:34 CDT HISTORY: M25.562 - Pain in left knee COMPARISON: No comparisons available. Findings: No acute fracture or malalignment. Severe tricompartmental degenerative changes with small effusion Soft tissues unremarkable. Impression: No acute fracture or malalignment. Reviewed, dictated and finalized at location A. Impression: No acute fracture or malalignment.
--- NOTE | ~2025-02-11 | MR_ITS ---
EXAMINATION: MR lumbar spine wo con DATE: 02/11/2025 07:28 INDICATION: Low back pain, unspecified. TECHNIQUE: Magnetic resonance imaging (MRI) of the lumbar spine was performed without intravenous contrast. Sequences included sagittal T2-weighted FSE, sagittal T2-weighted FS FSE, sagittal T1-weighted FSE, and axial T2-weighted FSE. COMPARISON: None FINDINGS: There is 4 degrees levocurvature of lumbar spine. There is 4 mm anterolisthesis of L2 on L3 and L3 on L4 and 6 mm anterolisthesis of L4 on L5. There is severely decreased disc height at L2-L3 and L3-L4 with endplate remodeling and mild chronic height loss of the vertebral bodies. There is mod erately decreased disc height at L4-L5. The distal spinal cord signal intensity is normal. The conus medullaris is at L1. The following disc levels are specifically discussed: L1-L2: The disc is bulging with superimposed left foraminal extrusion. There is moderate right and mild left facet joint osteoarthritis. There is mild bilateral neural foraminal stenosis. There is mild central canal stenosis. L2-L3: The disc is bulging and has an annular fissure. There is severe bilateral facet joint osteoarthritis. There is moderate bilateral neural foraminal stenosis. There is moderate central canal stenosis. L3-L4: The disc is bulging and has an annular fissure. There is severe bilateral facet joint osteoarthritis. There is moderate bilateral neural foraminal stenosis. There is moderate central canal stenosis. L4-L5: The disc is bulging and has an annular fissure. There is severe bilateral facet joint osteoarthritis. There is moderate bilateral neural foraminal stenosis. There is mild central canal stenosis. L5-S1: The disc is bulging and has an annular fissure. There is severe bilateral facet joint osteoarthritis. There is mild left neural foraminal stenosis. There is mild central canal stenosis. IMPRESSION: 1. Severe lumbar spondylosis. Reviewed, dictated and finalized at location E.
== END 2025-02-11 07:03 | disposition home or self-care (01) ==
LOC: MICIMG 07:03
PROVIDERS: PCP Family Medicine; Visit Provider Family Medicine
DX: M25.562 Pain in left knee (principal); M47.896 Other spondylosis, lumbar region
CPT/HCPCS: 72148; 73562